=== PATIENT | male | born 1985 | race Caucasian/White ===

== ENCOUNTER 2017-05-02 14:33 | Emergency (ER) | payer SELFPAY ==
--- NOTE | 2017-05-02 14:50 | ED Physician Documentation ---
General Adult - HISTORIAN Historian: patient - HPI Stated Complaint: right rib pain Chief Complaint: General Adult Additional Information: Patient was jogging on the [place] today when he tripped and injured his right rib cage laterally. Has been having some increase pain with deep breathing and movement. No SOB or dyspnea noted at this time. No previous chest inruy or problems. Onset: minutes (45) Timing: still present - ROS CONST: no problems CVS/RESP: chest pain (wall pain on the right) - PAST HX Past History: none, hypertension Surgeries/Procedures: cholecystectomy, other (scaphoid surgery, left ankle surgery for trimalleolar fx, appendectomy) Allergies/Adverse Reactions: Allergies Allergy/AdvReac Type Severity Reaction Status Date / Time No Known Allergies Allergy Verified 05/02/17 15:03 Home Medications: Ambulatory Orders Medication Instructions Recorded Naproxen [Naprosyn] 500 mg PO BID PRN #60 tablet 05/02/17 - SOCIAL HX Smoking History: non-smoker Alcohol Use: none Drug Use: none - FAMILY HX Family History: No - REVIEWED ASSESSMENTS Nursing Assessment Reviewed: Yes Vitals Reviewed: Yes ED Results Lab/Radiology - Radiology Radiology Impressions: Examination: Plain film right ribs History: PATIENT STATES MID RIGHT RIB PAIN AFTER FALL. NO HEART OR LUNG PROBLEMS. NO SURGICAL HISTORY. (Hx) / FELL WITH RIGHT RIB PAIN (DICOM Hx) / FELL WITH RIGHT RIB PAIN (Pt comments) Findings: 4 views of the right ribs demonstrates normal cortical margins. No fracture or dislocation. Underlying parenchymal without abnormality. Surgical clips right upper abdominal quadrant. Impression: No rib fracture/abnormality - Orders Orders: ED Orders Category Date Time Status RIBS UNILATERAL W/ PA CHEST [RAD] Routine Exams 05/02/17 Ordered General Adult Physical Exam - PHYSICAL EXAM GENERAL APPEARANCE: moderate distress NECK: normal inspection, supple RESPIRATORY: breath sounds normal, other (right lateral chest wall tenderness, no creptius or sub Q air noted, no bony abnl noted. ). No: wheezes, rales, rhonchi CVS: reg rate & rhythm, heart sounds normal, no murmur ABDOMEN: soft, no organomegaly, normal bowel sounds EXTREMITIES: non-tender NEURO: oriented X3, mood/affect nml, cognition normal Discharge Clincal Impression: Chest wall contusion Prescriptions: Naproxen [Naprosyn] 500 mg PO BID PRN #60 tablet PRN Reason: pain Referrals: Primary Doctor,No [Primary Care Provider] - 2 Days Additional Instructions: Take some deep breathes every hour while awake. Try using a warm/cool compress to the lateral chest wall. Splint chest wall when coughing. Take Naprosyn on a regular basis until pain starts to improve Condition: Stable Disposition: 01 HOME, SELF-CARE Decision to Admit: NO Date of Decison to Admit: 05/02/17 Decision Time: 15:42
[2017-05-02] MEDS ORDERED: KETOROLAC TROMETHAMINE 60 MG/2 ML VIAL IM ONE (14:54)
[2017-05-02 15:26] VITALS: BP 140/95
--- NOTE | 2017-05-02 15:49 | Diagnostic Imaging Report ---
MILAGROS YOUNG [facility] [id number] [facility] [address] [id number] Report Submission Date: May 02, 2017 3:09:05 PM [employer] Patient Study Name: JEANINE HUSAIN Date: May 02, 2017 2:51:13 PM [employer] Modality Type: CR Gender: M Description: CHEST : 87 Institution: [facility] Physician: MILAGROS YOUNG Examination: Plain film right ribs History: PATIENT STATES MID RIGHT RIB PAIN AFTER FALL. NO HEART OR LUNG PROBLEMS. NO SURGICAL HISTORY. (Hx) / FELL WITH RIGHT RIB PAIN (DICOM Hx) / FELL WITH RIGHT RIB PAIN (Pt comments) Findings: 4 views of the right ribs demonstrates normal cortical margins. No fracture or dislocation. Underlying parenchymal without abnormality. Surgical clips right upper abdominal quadrant. Impression: No rib fracture/abnormality. Electronically signed on May 02, 2017 3:09:05 PM [employer] by: Hari JOHANSEN
== END 2017-05-02 15:59 | disposition home or self-care (01) ==
LOC: ED 14:33
DX: S20.219A Contusion of unspecified front wall of thorax, initial encounter (principal); W18.30XA Fall on same level, unspecified, initial encounter; Y93.A9 Activity, other involving cardiorespiratory exercise; Y92.838 Other recreation area as the place of occurrence of the external cause; Y99.9 Unspecified external cause status
CPT/HCPCS: 71101; 99283